=== PATIENT | male | born 1965 | race Caucasian/White ===

== ENCOUNTER 2023-09-17 14:58 | Emergency (ER) | payer OTHER, SELFPAY ==
[2023-09-17 15:14] VITALS: BP 177/99; PULSE 62; RESP 18; TEMP 36.7; O2SAT 97
--- NOTE | 2023-09-17 15:52 | ED.URI ---
HPI - URI/Sore Throat General Chief Complaint: Upper Respiratory Infection Stated Complaint: Congestion Time Seen by Provider: 09/17/23 15:53 Source: patient, RN notes reviewed and old records reviewed Mode of arrival: ambulatory Limitations: no limitations History of Present Illness HPI Narrative: 58 year old male presents to [facility] with complaits of 4 week duration of sinus congestion, pressure and drainage. Patient reports ear fullness with initially some fevers but none recently. Patient reports sinus drainage yellow in color,sinus pressure and frontal headache pain. patient reports that he has tried numerous OTC cold and sinus medications without improvement in his symptoms. MD elicited complaint: rhinorrhea, nasal congestion, sinus pain and other (ear pressure) Pertinent past history: sinusitis Consistency: constant Pain scale (0-10): 7 Description of mucous: yellow Able to tolerate fluids by mouth: Yes Associated symptoms: headache, rhinorrhea, nasal congestion and ear pain (pressure) Treatments prior to arrival: cold medicine and other (OTC sinus medications) Related Data Home Medications Medication Instructions Recorded Confirmed doxycycline hyclate 100 mg capsule 100 mg PO DAILY 09/17/23 09/17/23 lisinopril 20 2 tablet PO DAILY 09/17/23 09/17/23 mg-hydrochlorothiazide 12.5 mg tablet Allergies Allergy/AdvReac Type Severity Reaction Status Date / Time No Known Allergies Allergy Verified 09/17/23 15:29 Review of Systems Review of Systems: CONSTITUTIONAL: Denies malaise, chills, sweats, or fever. EYES: Denies visual changes, redness, or discharge. ENT: Reports rhinorrhea, congestion, sinus pain,bilateral ear pressure,no sore throat. CARDIOVASCULAR: Denies chest pain, palpitations, or edema. RESPIRATORY: Reports occasional cough.? Denies dyspnea. GASTROINTESTINAL: Denies abdominal pain, nausea, vomiting, diarrhea SKIN: Denies rash or itching. MUSCULOSKELETAL: Denies myalgia. NEUROLOGIC: Reports frontal headache. All systems reviewed & are unremarkable except as noted in HPI and below PMFSH Past Medical History Medical History (Updated 09/19/23 @ 19:57 by Karo Fitch NP) Cellulitis History of sinus problem Hypertension Social History Social History (Updated 09/19/23 @ 19:53 by Karo Fitch NP) Smoking status: Current some day smoker Tobacco type: cigarettes Alcohol intake: current Alcohol use details: social Substance use type: does not use Living arrangements: with family Gender identity (if verbalized by the patient): Male Comments At time of signature, agree with nursing past medical, surgical, social and family history. There is no relevant family history pertinent to the presenting complaint Exam Narrative: GENERAL: Well-appearing, well-nourished,obese and in no acute distress. HEAD: Normocephalic EYES: PERRLA, conjunctivae clear ENT: Nares red swollen, turbinates edematous and erythematous,yellow discharge.sinus pressure and frontal headache pain, Mucous membranes moist. TM pearly perera with dull light reflex bilaterally; no tragal tenderness. Oropharynx erythematous without lesions. Tonsils not enlarged and without exudate, no drooling, no hoarseness, no trismus, uvula midline.post nasal drainage noted. NECK: Supple. No lymphadenopathy CHEST: Clear to auscultation, breath sounds equal. No wheezing, rhonchi, rales, or stridor. No respiratory distress, speaks in full sentences.occasional cough,SAO1 97% on room air HEART: Regular rate and rhythm. No murmur heard. SKIN: Warm, dry, no rash. NEURO: Alert and oriented x3. PSYCH: Normal mood and affect Course Course Emergency Course: Patient is aware of diagnosis, understands and agrees to treatment plan.? Anticipatory guidance given.? Patient agrees to follow-up as directed and is aware of reasons to seek care at the emergency department. Portions of this record
== END 2023-09-17 16:00 | disposition home or self-care (01) ==
PROVIDERS: Emergency Provider Registered Nurse; PCP Internal Medicine
DX: J32.9 Chronic sinusitis, unspecified (principal); I10 Essential (primary) hypertension; F17.210 Nicotine dependence, cigarettes, uncomplicated; Z79.899 Other long term (current) drug therapy
CPT/HCPCS: 99213; G0463

== ENCOUNTER 2024-08-31 13:37 | Emergency (ER) | payer OTHER, SELFPAY ==
[2024-08-31 13:48] VITALS: BP 148/80; PULSE 79; RESP 18; TEMP 36.9; O2SAT 97
--- NOTE | 2024-08-31 14:31 | ED_ITS ---
HPI - URI/Sore Throat General Chief Complaint: Upper Respiratory Infection Stated Complaint: Sinus Pain History of Present Illness HPI Narrative: 59-year-old male presented for complaint of nasal congestion and sinus pain for 11 days. Endorses chest congestion and cough. Denies shortness of breath, wheezing nausea, vomiting, diarrhea, fevers or chills. Taking multiple [id number]-[id number] medication without relief. Used Afrin now using Flonase. Related Data Home Medications ?Medication ?Instructions ?Recorded ?Confirmed ?Last Taken ?Type lisinopril 20 2 tablet PO DAILY 09/17/23 08/31/24 Unknown History mg-hydrochlorothiazide 12.5 mg tablet Allergies Allergy/AdvReac Type Severity Reaction Status Date / Time No Known Allergies Allergy Verified 09/17/23 15:29 Review of Systems Review of Systems: CONSTITUTIONAL: Denies body aches, fever, chills, or sweats. EYES: Denies visual changes, redness, or discharge. ENT: reports rhinorrhea, congestion, denies sore throat or otalgia. CARDIOVASCULAR: Denies chest pain, palpitations, or edema. RESPIRATORY: Denies dyspnea. MUSCULOSKELETAL: Denies back pain, joint pain, or myalgia. NEUROLOGIC: Denies headache PMFSH Past Medical History Medical History (Updated 08/31/24 @ 14:34 by Rosa Maria Israel APRN) Cellulitis History of sinus problem Hypertension Social History Social History (Updated 09/19/23 @ 19:53 by Karo Fitch NP) Smoking status: Current some day smoker Tobacco type: cigarettes Alcohol intake: current Alcohol use details: social Substance use type: does not use Living arrangements: with family Gender identity (if verbalized by the patient): Male Exam Narrative: GENERAL: well-appearing, no acute distress. EYES: conjunctivae clear ENT: Mucous membranes moist. Nasal congestion. TM pearly perera with normal light reflex bilaterally; no tragal tenderness. Oropharynx erythematous without lesions. No drooling, no hoarseness, no trismus, uvula midline. No tripod positioning, hot potato voice, or soft palate swelling. NECK: Supple. No lymphadenopathy CHEST: Clear to auscultation, breath sounds equal. No respiratory distress, speaks in full sentences. HEART: Regular rate and rhythm. No murmur heard. SKIN: Warm, dry, no rash. NEURO: Alert and oriented x3. Course Course Emergency Course: Patient is aware of diagnosis, understands and agrees to treatment plan. Anticipatory guidance given. Patient agrees to follow-up as directed and is aware of reasons to seek care at the emergency department. Portions of this record may have been created with voice recognition software Level of Care: Express Care Visit Vital Signs Vital signs: Vital Signs Temperature 98.4 F 08/31/24 13:48 Pulse Rate 79 08/31/24 13:48 Respiratory Rate 18 08/31/24 13:48 Blood Pressure 148/80 H 08/31/24 13:48 Pulse Oximetry 97 08/31/24 13:48 Oxygen Delivery Room Air 08/31/24 13:48 Temperature 98.4 F 08/31/24 13:48 Pulse Rate 79 08/31/24 13:48 Respiratory Rate 18 08/31/24 13:48 Blood Pressure 148/80 H 08/31/24 13:48 Pulse Oximetry 97 08/31/24 13:48 Oxygen Delivery Room Air 08/31/24 13:48 MDM - URI/Sore Throat MDM Narrative Medical decision making narrative: discussed physical exam findings consistent with sinusitis Advise supportive treatments. Patient is appropriate for outpatient treatment and follow-up. Differential Diagnosis Differential diagnosis: Likely upper respiratory infection, viral infection and pharyngitis Discharge Plan Discharge Clinical Impression: Sinusitis Patient Disposition: Home, Self-Care Condition: Stable Instructions: Antibiotic Form, Rhinosinusitis (ED) Additional Instructions: Take antibiotic as directed Recommendations: Flonase spray and Zyrtec (or Claritin/Allie) over the counter Cough syrup may cause drowsiness; avoid driving or take it at night time. Tylenol 1000mg every 8 hours as needed for pain Symptomatic treatment includes: rest, fluids, and increase humidity of the air at home. Follow up with your primary care provider in 1 week. Go to the ER for worsening symptoms or concerns. Patient Language: [place] Prescriptions: New amoxicillin-pot clavulanate 875-125 mg tablet 1 tablet PO Q12H 7 Days Qty: 14 0RF No Action lisinopril-hydrochlorothiazide 20-12.5 mg tablet 2 tablet PO DAILY Follow-up/Referrals: Kosta,Agustin Steven MD [Primary Care Provider] -
== END 2024-08-31 14:44 | disposition home or self-care (01) ==
PROVIDERS: Emergency Provider Nurse Practitioner Family; PCP Internal Medicine
DX: J32.9 Chronic sinusitis, unspecified (principal); F17.210 Nicotine dependence, cigarettes, uncomplicated; I10 Essential (primary) hypertension
CPT/HCPCS: 99213; G0463